=== PATIENT | male | born 1990 | race Caucasian/White ===

== ENCOUNTER 2016-10-30 14:38 | Emergency (ER) | payer MEDICAID ==
[~2016-10-30 14:38] MED LIST: ATOM40CA PO; NO HOME MEDICATIONS; TRAZ100T4 PO
--- NOTE | 2016-10-30 16:46 | EDDOCDS ---
Nurse's Notes [facility] Name: Gume Briones Age: 26 yrs Sex: Male : 1990 Arrival Date: 10/30/2016 Time: 14:38 Bed I9 / 22 Private MD: No Pcp Diagnosis: Pseudofolliculitis barbae Presentation: 10/30 14:43 Presenting complaint: Patient states: does not have primary so came to be seen here for hs1 lumps under armpit. Patient states he popped one already and shaved his armpit hair so we could see the lumps better. Adult Sepsis Screening: The patient does not have new or worsening altered mentation. Patient's respiratory rate is less than 22. Systolic blood pressure is greater than 100. Patient has a qSOFA score of 0- Negative Sepsis Screen. Suicide/Homicide risk assessment- the patient denies having any suicidal and/or homicidal ideations and does not present with any other emotional, behavioral or mental health complaints. Status: Patient is not a manager administrative services or dependent. Transition of care: patient was not received from another setting of care. 14:43 Acuity: GAURI Level 4 hs1 14:43 Method Of Arrival: Walkin/Carried/Asstd hs1 Triage Assessment: 14:45 General: Appears in no apparent distress, Behavior is appropriate for age, cooperative. hs1 Pain: Location: left axilla Pain currently is 7 out of 10 on a pain scale. Pt Declines HIV testing. Derm: Abscess is nickel sized. Historical: - Allergies: No known drug Allergies; - Home Meds: 1. ibuprofen 200 mg Oral tab 800 mg (Last dose: 10/30/2016 01:00) - PMHx: none; - PSHx: right foot; - Social history: Smoking status: Patient uses tobacco products, heavy tobacco smoker. No barriers to communication noted, The patient speaks fluent Greenlandic, Speaks appropriately for age. - Family history: Not pertinent. - : The pt / caregiver states he / she is not on anticoagulants. Home medication list is obtained from the patient. - Exposure Risk Screening:: None identified. Screenin:44 Screening information is obtained from the patient. Fall risk: No risks identified. jc4 Assistance ADL's: requires no assistance with activities of daily living. Abuse/DV Screen: The patient / caregiver reports he/she is: not in a situation that causes fear, pain or injury. Nutritional screening: No deficits noted. Advance Directives: Currently, there is no health care proxy. There is no active DNR order. There is no living will. There is no Power of Experience Designer. home support is adequate. Assessment: 16:43 General: Appears in no apparent distress, Behavior is cooperative. Neurological: Level jc4 of Consciousness is awake, alert, Oriented to person, place, time. Respiratory: Airway is patent Respiratory effort is even, unlabored, Respiratory pattern is regular, symmetrical. Derm: Skin is pink, warm & dry. area of redness noted in left axilla with pustule noted. No drainage noted. Vital Signs: 14:41 BP 158 / 78 RA Sitting (auto/reg); Pulse 82; Resp 18; Temp 98.2(O); Pulse Ox 100% on jrd R/A; Weight 117.48 kg (M); Height 6 ft. 6 in. (198.12 cm) (R); Pain 7/10; 14:41 Body Mass Index 29.93 (117.48 kg, 198.12 cm) [facility] Vitals: 14:41 Log In Time: October 30, 2016 at 14:36. [facility] ED Course: 14:39 Patient visited by Jonathan Buitrago PCA. jr 14:39 Patient moved to Waiting jr 14:41 No Pcp is Private Physician. [facility] 14:42 Patient visited by Jonathan Buitrago PCA. jrd 14:42 Patient moved to Pre RCE jrd 14:44 Triage Initiated hs1 16:07 Patient moved to 15 mlb1 16:08 [facility] ke 16:08 Mignon Pritchard, RN is Primary Nurse. [facility] 16:08 Angela Reid,NICKOLAS is Primary Nurse. [facility] 16:08 Patient visited by Ceasar Carranza FNP. ke 16:08 Patient visited by Ceasar Carranza FNP. ke 16:08 Patient moved to I [facility] 16:33 [facility] is Referral Physician. ke 16:44 No IV's were initiated during this patient's visit. No procedures done that require jc4 assistance. 16:45 The patient / caregiver is instructed regarding the plan of care and ED course. jc4 Order Results: There are currently no results for this order. Outcome: 16:34 Discharge ordered by Provider. 16:44 Discharge Assessment: Patient awake, alert and oriented x 3. No cognitive and/or jc4 functional deficits noted. Patient verbalized understanding of disposition instructions. patient administered narcotics - no. The following High Risk Discharge criteria are identified: None. Discharged to home ambulatory. Condition: stable. Discharge instructions given to patient, Instructed on discharge instructions, follow up and referral plans. medication usage, Use of warm compresses to the affected area, Demonstrated understanding of instructions, medications, Pt was receptive of discharge instructions/ teaching. No special radiology studies were completed. Property :Personal belongings accompany Pt. 16:45 Patient left the ED. jc4 Signatures: Lisa Pike, RN RN kpCeasar Antonio, HOCKEY SCOUT HOCKEY SCOUT Axel Potts RN RN mlb1 Cony Clark RN RN hs1 Mignon Pritchard RN RN jc4 Jonathan Buitrago PCA DRIER AND PULVERIZER TENDER jrd DANILOD
--- NOTE | 2016-10-30 16:46 | EDDOCDS ---
Physician Documentation [facility] Name: Gume Briones Age: 26 yrs Sex: Male : 1990 Arrival Date: 10/30/2016 Time: 14:38 Bed I9 Private MD: No Pcp Disposition: 10/30/16 16:34 Discharged to Home/Self Care. Impression: Pseudofolliculitis barbae. - Condition is Stable. - Discharge Instructions: Ingrown Hair. - Prescriptions for Keflex 500 mg Oral Capsule - take 1 capsule by ORAL route every 6 hours for 10 days; 40 capsule. Naprosyn 500 mg Oral Tablet - take 1 tablet by ORAL route 2 times per day take with food; 30 tablet. - Medication Reconciliation, Local Pharmacy Hours form. - [facility]: [facility]; When: Call to arrange an appointment; Reason: Further diagnostic work-up, Continuance of care, To establish care. - Problem is an ongoing problem. - Symptoms are unchanged. - Notes: warm compresses 20 min an hour Historical: - Allergies: No known drug Allergies; - Home Meds: 1. ibuprofen 200 mg Oral tab 800 mg (Last dose: 10/30/2016 01:00) - PMHx: none; - PSHx: right foot; - Social history: Smoking status: Patient uses tobacco products, heavy tobacco smoker. No barriers to communication noted, The patient speaks fluent Spanish, Speaks appropriately for age. - Family history: Not pertinent. - : The pt / caregiver states he / she is not on anticoagulants. Home medication list is obtained from the patient. - Exposure Risk Screening:: None identified. Vital Signs: 10/30 14:41 BP 158 / 78 RA Sitting (auto/reg); Pulse 82; Resp 18; Temp 98.2(O); Pulse Ox 100% on jrd R/A; Weight 117.48 kg / 259 lbs (M); Height 6 ft. 6 in. (198.12 cm) (R); Pain 7/10; 14:41 Body Mass Index 29.93 (117.48 kg, 198.12 cm) jrd Signatures: Ceasar Carranza, STEAMER TENDER STEAMER TENDER Cony Sandoval RN RN hs1 Mignon Pritchard RN RN jc4 MTDD
--- NOTE | 2016-11-01 17:46 | EDDOCDS ---
Physician Documentation [facility] Name: Gume Briones Age: 26 yrs Sex: Male : 1990 Arrival Date: 10/30/2016 Time: 14:38 Bed I9 / Private MD: No Pcp Disposition: 10/30/16 16:34 Discharged to Home/Self Care. Impression: Pseudofolliculitis barbae. - Condition is Stable. - Discharge Instructions: Ingrown Hair. - Prescriptions for Keflex 500 mg Oral Capsule - take 1 capsule by ORAL route every 6 hours for 10 days; 40 capsule. Naprosyn 500 mg Oral Tablet - take 1 tablet by ORAL route 2 times per day take with food; 30 tablet. - Medication Reconciliation, Local Pharmacy Hours form. - Follow up: [facility]; When: Call to arrange an appointment; Reason: Further diagnostic work-up, Continuance of care, To establish care. - Problem is an ongoing problem. - Symptoms are unchanged. - Notes: warm compresses 20 min an hour Historical: - Allergies: No known drug Allergies; - Home Meds: 1. ibuprofen 200 mg Oral tab 800 mg (Last dose: 10/30/2016 01:00) - PMHx: none; - PSHx: right foot; - Social history: Smoking status: Patient uses tobacco products, heavy tobacco smoker. No barriers to communication noted, The patient speaks fluent Upper Sorbian, Speaks appropriately for age. - Family history: Not pertinent. - : The pt / caregiver states he / she is not on anticoagulants. Home medication list is obtained from the patient. - Exposure Risk Screening:: None identified. Vital Signs: 10/30 14:41 BP 158 / 78 RA Sitting (auto/reg); Pulse 82; Resp 18; Temp 98.2(O); Pulse Ox 100% on jrd R/A; Weight 117.48 kg / 259 lbs (M); Height 6 ft. 6 in. (198.12 cm) (R); Pain 7/10; 14:41 Body Mass Index 29.93 (117.48 kg, 198.12 cm) jrd MDM: 16:50 Financial registration complete. zo 16:53 [facility] Payment Agreement was scanned into [employer] and attached to record. zo 10/31 10:54 T-Sheet-- Draft Copy was scanned into [employer] and attached to record. gb Signatures: Haley Donovan, Reg Reg gb Ceasar Carranza, ROUNDSMAN Stephen Montiel Hannah, RN RN hs1 Mignon Pritchard RN RN jc4 The chart was reviewed and I authenticate all verbal orders and agree with the evaluation and treatment provided.Attachments: 10/30 16:53 [facility] [place] 10/31 10:54 T-Sheet-- Draft Copy gb Chart Complete MTDD
--- NOTE | 2016-11-01 17:46 | EDDOCDS ---
Physician Documentation [facility] Name: Gume Briones Age: 26 yrs Sex: Male : 1990 Arrival Date: 10/30/2016 Time: 14:38 Bed I9 / Private MD: No Pcp Disposition: 10/30/16 16:34 Discharged to Home/Self Care. Impression: Pseudofolliculitis barbae. - Condition is Stable. - Discharge Instructions: Ingrown Hair. - Prescriptions for Keflex 500 mg Oral Capsule - take 1 capsule by ORAL route every 6 hours for 10 days; 40 capsule. Naprosyn 500 mg Oral Tablet - take 1 tablet by ORAL route 2 times per day take with food; 30 tablet. - Medication Reconciliation, Local Pharmacy Hours form. - Follow up: [facility]; When: Call to arrange an appointment; Reason: Further diagnostic work-up, Continuance of care, To establish care. - Problem is an ongoing problem. - Symptoms are unchanged. - Notes: warm compresses 20 min an hour Historical: - Allergies: No known drug Allergies; - Home Meds: 1. ibuprofen 200 mg Oral tab 800 mg (Last dose: 10/30/2016 01:00) - PMHx: none; - PSHx: right foot; - Social history: Smoking status: Patient uses tobacco products, heavy tobacco smoker. No barriers to communication noted, The patient speaks fluent Welsh, Speaks appropriately for age. - Family history: Not pertinent. - : The pt / caregiver states he / she is not on anticoagulants. Home medication list is obtained from the patient. - Exposure Risk Screening:: None identified. Vital Signs: 10/30 14:41 BP 158 / 78 RA Sitting (auto/reg); Pulse 82; Resp 18; Temp 98.2(O); Pulse Ox 100% on jrd R/A; Weight 117.48 kg / 259 lbs (M); Height 6 ft. 6 in. (198.12 cm) (R); Pain 7/10; 14:41 Body Mass Index 29.93 (117.48 kg, 198.12 cm) jrd MDM: 16:50 Financial registration complete. zo 16:53 [facility] Payment Agreement was scanned into [employer] and attached to record. zo 10/31 10:54 T-Sheet-- Draft Copy was scanned into [employer] and attached to record. gb Signatures: Haley Donovan, Reg Reg gb Ceasar Carranza, INSTRUMENT LENS GENERATOR Stephen Montiel Hannah, RN RN hs1 Mignon Pritchard RN RN jc4 The chart was reviewed and I authenticate all verbal orders and agree with the evaluation and treatment provided.Attachments: 10/30 16:53 [facility] [place] Payment Agreement zo 10/31 10:54 T-Sheet-- Draft Copy gb Chart Complete MTDD
--- NOTE | 2016-11-01 17:46 | EDDOCDS ---
Nurse's Notes [facility] Name: Gume Briones Age: 26 yrs Sex: Male : 1990 Arrival Date: 10/30/2016 Time: 14:38 Bed I9 / 22 Private MD: No Pcp Diagnosis: Pseudofolliculitis barbae Presentation: 10/30 14:43 Presenting complaint: Patient states: does not have primary so came to be seen here for hs1 lumps under armpit. Patient states he popped one already and shaved his armpit hair so we could see the lumps better. Adult Sepsis Screening: The patient does not have new or worsening altered mentation. Patient's respiratory rate is less than 22. Systolic blood pressure is greater than 100. Patient has a qSOFA score of 0- Negative Sepsis Screen. Suicide/Homicide risk assessment- the patient denies having any suicidal and/or homicidal ideations and does not present with any other emotional, behavioral or mental health complaints. Status: Patient is not a household appliances service technician or dependent. Transition of care: patient was not received from another setting of care. 14:43 Acuity: GAURI Level 4 hs1 14:43 Method Of Arrival: Walkin/Carried/Asstd hs1 Triage Assessment: 14:45 General: Appears in no apparent distress, Behavior is appropriate for age, cooperative. hs1 Pain: Location: left axilla Pain currently is 7 out of 10 on a pain scale. Pt Declines HIV testing. Derm: Abscess is nickel sized. Historical: - Allergies: No known drug Allergies; - Home Meds: 1. ibuprofen 200 mg Oral tab 800 mg (Last dose: 10/30/2016 01:00) - PMHx: none; - PSHx: right foot; - Social history: Smoking status: Patient uses tobacco products, heavy tobacco smoker. No barriers to communication noted, The patient speaks fluent Hungarian, Speaks appropriately for age. - Family history: Not pertinent. - : The pt / caregiver states he / she is not on anticoagulants. Home medication list is obtained from the patient. - Exposure Risk Screening:: None identified. Screenin:44 Screening information is obtained from the patient. Fall risk: No risks identified. jc4 Assistance ADL's: requires no assistance with activities of daily living. Abuse/DV Screen: The patient / caregiver reports he/she is: not in a situation that causes fear, pain or injury. Nutritional screening: No deficits noted. Advance Directives: Currently, there is no health care proxy. There is no active DNR order. There is no living will. There is no Power of Manager Appointment. home support is adequate. Assessment: 16:43 General: Appears in no apparent distress, Behavior is cooperative. Neurological: Level jc4 of Consciousness is awake, alert, Oriented to person, place, time. Respiratory: Airway is patent Respiratory effort is even, unlabored, Respiratory pattern is regular, symmetrical. Derm: Skin is pink, warm & dry. area of redness noted in left axilla with pustule noted. No drainage noted. Vital Signs: 14:41 BP 158 / 78 RA Sitting (auto/reg); Pulse 82; Resp 18; Temp 98.2(O); Pulse Ox 100% on jrd R/A; Weight 117.48 kg (M); Height 6 ft. 6 in. (198.12 cm) (R); Pain 7/10; 14:41 Body Mass Index 29.93 (117.48 kg, 198.12 cm) [facility] Vitals: 14:41 Log In Time: October 30, 2016 at 14:36. [facility] ED Course: 14:39 Patient visited by Jonathan Buitrago PCA. jrd 14:39 Patient moved to Waiting jr 14:41 No Pcp is Private Physician. jrd 14:42 Patient visited by Jonathan Buitrago PCA. jrd 14:42 Patient moved to Pre RCE jrd 14:44 Triage Initiated hs1 16:07 Patient moved to 15 mlb1 16:08 [facility] ke 16:08 Mignon Pritchard, RN is Primary Nurse. [facility] 16:08 Angela Reid,NICKOLAS is Primary Nurse. kp 16:08 Patient visited by Ceasar Carranza FNP. ke 16:08 Patient visited by Ceasar Carranza FNP. ke 16:08 Patient moved to I [facility] 16:33 [facility] is Referral Physician. ke 16:44 No IV's were initiated during this patient's visit. No procedures done that require jc4 assistance. 16:45 The patient / caregiver is instructed regarding the plan of care and ED course. jc4 16:53 [facility] Payment Agreement was scanned into [employer] and attached to record. quinn 10/31 10:54 T-Sheet-- Draft Copy was scanned into [employer] and attached to record. marga Order Results: There are currently no results for this order. Outcome: 10/30 16:34 Discharge ordered by Provider. regi 16:44 Discharge Assessment: Patient awake, alert and oriented x 3. No cognitive and/or jc4 functional deficits noted. Patient verbalized understanding of disposition instructions. patient administered narcotics - no. The following High Risk Discharge criteria are identified: None. Discharged to home ambulatory. Condition: stable. Discharge instructions given to patient, Instructed on discharge instructions, follow up and referral plans. medication usage, Use of warm compresses to the affected area, Demonstrated understanding of instructions, medications, Pt was receptive of discharge instructions/ teaching. No special radiology studies were completed. Property :Personal belongings accompany Pt. 16:45 Patient left the ED. jc4 Signatures: Lisa Pike, RN RN Haley Burrows, Pato Reg Ceasar Turner, MEDICAL VAN DRIVER MEDICAL VAN DRIVER Axel Potts, RN RN mlb1 Stephen Armas Hannah, RN RN hs1 Mignon Pritchard RN RN jc4 Jonathan Buitrago PCA PCA jrjefry Chart Complete MTDD
--- NOTE | 2016-11-08 13:49 | EDDOCDS ---
Physician Documentation [facility] Name: Gume Briones Age: 26 yrs Sex: Male : 1990 Arrival Date: 10/30/2016 Time: 14:38 Bed I9 / Private MD: No Pcp Disposition: 10/30/16 16:34 Discharged to Home/Self Care. Impression: Pseudofolliculitis barbae. - Condition is Stable. - Discharge Instructions: Ingrown Hair. - Prescriptions for Keflex 500 mg Oral Capsule - take 1 capsule by ORAL route every 6 hours for 10 days; 40 capsule. Naprosyn 500 mg Oral Tablet - take 1 tablet by ORAL route 2 times per day take with food; 30 tablet. - Medication Reconciliation, Local Pharmacy Hours form. - Follow up: [facility]; When: Call to arrange an appointment; Reason: Further diagnostic work-up, Continuance of care, To establish care. - Problem is an ongoing problem. - Symptoms are unchanged. - Notes: warm compresses 20 min an hour Historical: - Allergies: No known drug Allergies; - Home Meds: 1. ibuprofen 200 mg Oral tab 800 mg (Last dose: 10/30/2016 01:00) - PMHx: none; - PSHx: right foot; - Social history: Smoking status: Patient uses tobacco products, heavy tobacco smoker. No barriers to communication noted, The patient speaks fluent Mongolian, Speaks appropriately for age. - Family history: Not pertinent. - : The pt / caregiver states he / she is not on anticoagulants. Home medication list is obtained from the patient. - Exposure Risk Screening:: None identified. Vital Signs: 10/30 14:41 BP 158 / 78 RA Sitting (auto/reg); Pulse 82; Resp 18; Temp 98.2(O); Pulse Ox 100% on jrd R/A; Weight 117.48 kg / 259 lbs (M); Height 6 ft. 6 in. (198.12 cm) (R); Pain 7/10; 14:41 Body Mass Index 29.93 (117.48 kg, 198.12 cm) jrd MDM: 16:50 Financial registration complete. zo 16:53 [facility] Payment Agreement was scanned into [employer] and attached to record. zo 10/31 10:54 T-Sheet-- Draft Copy was scanned into [employer] and attached to record. gb Signatures: Haley Donovan, Reg Reg gb Ceasar Carranza, Stephen العراقي Hannah RN RN hs1 Mignon Pritchard RN RN jc4 The chart was reviewed and I authenticate all verbal orders and agree with the evaluation and treatment provided.Attachments: 10/30 16:53 [facility] [place] Agreement zo Chart Complete MTDD
--- NOTE | 2016-11-08 13:49 | EDDOCDS ---
Physician Documentation [facility] Name: Gume Briones Age: 26 yrs Sex: Male : 1990 Arrival Date: 10/30/2016 Time: 14:38 Bed I9 / Private MD: No Pcp Disposition: 10/30/16 16:34 Discharged to Home/Self Care. Impression: Pseudofolliculitis barbae. - Condition is Stable. - Discharge Instructions: Ingrown Hair. - Prescriptions for Keflex 500 mg Oral Capsule - take 1 capsule by ORAL route every 6 hours for 10 days; 40 capsule. Naprosyn 500 mg Oral Tablet - take 1 tablet by ORAL route 2 times per day take with food; 30 tablet. - Medication Reconciliation, Local Pharmacy Hours form. - Follow up: [facility]; When: Call to arrange an appointment; Reason: Further diagnostic work-up, Continuance of care, To establish care. - Problem is an ongoing problem. - Symptoms are unchanged. - Notes: warm compresses 20 min an hour Historical: - Allergies: No known drug Allergies; - Home Meds: 1. ibuprofen 200 mg Oral tab 800 mg (Last dose: 10/30/2016 01:00) - PMHx: none; - PSHx: right foot; - Social history: Smoking status: Patient uses tobacco products, heavy tobacco smoker. No barriers to communication noted, The patient speaks fluent Sami, Speaks appropriately for age. - Family history: Not pertinent. - : The pt / caregiver states he / she is not on anticoagulants. Home medication list is obtained from the patient. - Exposure Risk Screening:: None identified. Vital Signs: 10/30 14:41 BP 158 / 78 RA Sitting (auto/reg); Pulse 82; Resp 18; Temp 98.2(O); Pulse Ox 100% on jrd R/A; Weight 117.48 kg / 259 lbs (M); Height 6 ft. 6 in. (198.12 cm) (R); Pain 7/10; 14:41 Body Mass Index 29.93 (117.48 kg, 198.12 cm) jrd MDM: 16:50 Financial registration complete. zo 16:53 [facility] Payment Agreement was scanned into [employer] and attached to record. zo 10/31 10:54 T-Sheet-- Draft Copy was scanned into [employer] and attached to record. gb Signatures: Haley Donovan, Reg Reg gb Ceasar Carranza, Stephen العراقي Hannah RN RN hs1 Mignon Pritchard RN RN jc4 The chart was reviewed and I authenticate all verbal orders and agree with the evaluation and treatment provided.Attachments: 10/30 16:53 [facility] [place] Payment Agreement zo Chart Complete MTDD
--- NOTE | 2016-11-08 13:49 | EDDOCDS ---
Nurse's Notes [facility] Name: Gume Briones Age: 26 yrs Sex: Male : 1990 Arrival Date: 10/30/2016 Time: 14:38 Bed I9 / 22 Private MD: No Pcp Diagnosis: Pseudofolliculitis barbae Presentation: 10/30 14:43 Presenting complaint: Patient states: does not have primary so came to be seen here for hs1 lumps under armpit. Patient states he popped one already and shaved his armpit hair so we could see the lumps better. Adult Sepsis Screening: The patient does not have new or worsening altered mentation. Patient's respiratory rate is less than 22. Systolic blood pressure is greater than 100. Patient has a qSOFA score of 0- Negative Sepsis Screen. Suicide/Homicide risk assessment- the patient denies having any suicidal and/or homicidal ideations and does not present with any other emotional, behavioral or mental health complaints. 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 Transition of care: patient was not received from another setting of care. 14:43 Acuity: GAURI Level 4 hs1 14:43 Method Of Arrival: Walkin/Carried/Asstd hs1 Triage Assessment: 14:45 General: Appears in no apparent distress, Behavior is appropriate for age, cooperative. hs1 Pain: Location: left axilla Pain currently is 7 out of 10 on a pain scale. Pt Declines HIV testing. Derm: Abscess is nickel sized. Historical: - Allergies: No known drug Allergies; - Home Meds: 1. ibuprofen 200 mg Oral tab 800 mg (Last dose: 10/30/2016 01:00) - PMHx: none; - PSHx: right foot; - Social history: Smoking status: Patient uses tobacco products, heavy tobacco smoker. No barriers to communication noted, The patient speaks fluent Divehi, Speaks appropriately for age. - Family history: Not pertinent. - : The pt / caregiver states he / she is not on anticoagulants. Home medication list is obtained from the patient. - Exposure Risk Screening:: None identified. Screenin:44 Screening information is obtained from the patient. Fall risk: No risks identified. jc4 Assistance ADL's: requires no assistance with activities of daily living. Abuse/DV Screen: The patient / caregiver reports he/she is: not in a situation that causes fear, pain or injury. Nutritional screening: No deficits noted. Advance Directives: Currently, there is no health care proxy. There is no active DNR order. There is no living will. There is no Power of Radio Artist. home support is adequate. Assessment: 16:43 General: Appears in no apparent distress, Behavior is cooperative. Neurological: Level jc4 of Consciousness is awake, alert, Oriented to person, place, time. Respiratory: Airway is patent Respiratory effort is even, unlabored, Respiratory pattern is regular, symmetrical. Derm: Skin is pink, warm & dry. area of redness noted in left axilla with pustule noted. No drainage noted. Vital Signs: 14:41 BP 158 / 78 RA Sitting (auto/reg); Pulse 82; Resp 18; Temp 98.2(O); Pulse Ox 100% on jrd R/A; Weight 117.48 kg (M); Height 6 ft. 6 in. (198.12 cm) (R); Pain 7/10; 14:41 Body Mass Index 29.93 (117.48 kg, 198.12 cm) [facility] Vitals: 14:41 Log In Time: October 30, 2016 at 14:36. [facility] ED Course: 14:39 Patient visited by Jonathan Buitrago PCA. jrd 14:39 Patient moved to Waiting jr 14:41 No Pcp is Private Physician. jrd 14:42 Patient visited by Jonathan Buitrago PCA. jrd 14:42 Patient moved to Pre RCE jrd 14:44 Triage Initiated hs1 16:07 Patient moved to 15 mlb1 16:08 [facility] ke 16:08 Mignon Pritchard, RN is Primary Nurse. [facility] 16:08 Angela Reid,NICKOLAS is Primary Nurse. kp 16:08 Patient visited by Ceasar Carranza FNP. ke 16:08 Patient visited by Ceasar Carranza FNP. ke 16:08 Patient moved to I [facility] 16:33 [facility] is Referral Physician. ke 16:44 No IV's were initiated during this patient's visit. No procedures done that require jc4 assistance. 16:45 The patient / caregiver is instructed regarding the plan of care and ED course. jc4 16:53 [facility] Payment Agreement was scanned into Tour Desk and attached to record. quinn 10/31 10:54 T-Sheet-- Draft Copy was scanned into Tour Desk and attached to record. marga Order Results: There are currently no results for this order. Outcome: 10/30 16:34 Discharge ordered by Provider. regi 16:44 Discharge Assessment: Patient awake, alert and oriented x 3. No cognitive and/or jc4 functional deficits noted. Patient verbalized understanding of disposition instructions. patient administered narcotics - no. The following High Risk Discharge criteria are identified: None. Discharged to home ambulatory. Condition: stable. Discharge instructions given to patient, Instructed on discharge instructions, follow up and referral plans. medication usage, Use of warm compresses to the affected area, Demonstrated understanding of instructions, medications, Pt was receptive of discharge instructions/ teaching. No special radiology studies were completed. Property :Personal belongings accompany Pt. 16:45 Patient left the ED. jc4 Signatures: Lisa Pike, RN RN Haley Burrows, Pato Reg Ceasar Turner, MANAGER ORANGE MANAGER ORANGE Axel Potts, RN RN mlb1 Stephen Armas Hannah, RN RN hs1 Mignon Pritchard RN RN jc4 Jonathan Buitrago PCA PCA jrjefry Chart Complete MTDD
== END 2016-10-30 16:45 | disposition home or self-care (01) ==
LOC: M ED 14:38
DX: L02.412 Cutaneous abscess of left axilla (principal); L73.9 Follicular disorder, unspecified; F17.210 Nicotine dependence, cigarettes, uncomplicated

== ENCOUNTER 2018-06-23 08:24 | Emergency (ER) | payer OTHER, MEDICAID | END 2018-06-23 09:33 | disposition home or self-care (01) | LOC: M ED 08:24 | DX: M54.42 Lumbago with sciatica, left side (principal); F17.200 Nicotine dependence, unspecified, uncomplicated | CPT/HCPCS: 99282 ==

== ENCOUNTER → 2020-08-11 | Outpatient (REF) | payer OTHER ==
[~2020-08-11] MED LIST changes: +ACET500T15 PO; -ATOM40CA PO; +ATOM40CA16 PO; +CYCL-707 PO; +IBUP80TA PO; +TRAZ-257 PO; -TRAZ100T4 PO
[2020-08-11 12:52] LABS: SEMEN APPEARANCE OPAQUE (OPAQUE); SEMEN VISCOSITY LIQUID (LIQUID); SEMEN VOLUME 1.2 ml (2.0-5.0); SEMEN pH 8.5 (7.0-8.0)
[2020-08-11 12:53] LABS: WBC CONCENTRATION >1 M/ml (<=1 M/ml)
[2020-08-11 12:54] LABS: SPERM CONCENTRATION 4.8 M/ml (>=15.0)
== END ==
LOC: M LAB REF 12:27
PROVIDERS: ATTEND Internal Medicine
DX: N46.9 Male infertility, unspecified (principal)